=== PATIENT | female | born 1990 | race Caucasian/White ===

== ENCOUNTER 2018-09-13 19:29 | Emergency (ER) | payer SELFPAY ==
[~2018-09-13] VITALS: Ht 167.6 cm; Wt 81.6 kg
[2018-09-13 19:54] VITALS: Ht 167.6 cm; Wt 81.6 kg
[2018-09-13 23:14] VITALS: BP 117/67
== END 2018-09-13 23:14 | disposition home or self-care (01) ==
LOC: D.ER 19:29
DX: H52.31 Anisometropia (principal); G44.009 Cluster headache syndrome, unspecified, not intractable; F17.200 Nicotine dependence, unspecified, uncomplicated

== ENCOUNTER → 2019-10-25 21:19 | Outpatient (CLI) | payer OTHER | END | disposition home or self-care (01) | LOC: D.MAMMO 15:00 | PROVIDERS: ATTEND Nurse Practitioner Family | DX: N60.02 Solitary cyst of left breast (principal); Z80.3 Family history of malignant neoplasm of breast ==

== ENCOUNTER 2020-04-10 20:36 | Emergency (ER) | payer OTHER | END 2020-04-10 20:55 | disposition left against medical advice (07) | LOC: D.ER 20:36 | DX: R06.02 Shortness of breath (principal) ==